=== PATIENT | female | born 1990 | race Caucasian/White ===

== ENCOUNTER 2018-12-18 06:03 | Emergency (ER) | payer BC, OTHER ==
[~2018-12-18] VITALS: Ht 180.3 cm; Wt 122.5 kg
[2018-12-18] MEDS ORDERED: METF-397 (06:21)
[2018-12-18] MEDS ORDERED: NS IV 1000 ML 1,000 ML IV SCH ×2 (06:30→07:30)
[2018-12-18] MEDS ORDERED: ONDANSETRON 4 MG/2 ML (SDV) Z0FRAN IVP ONE (06:30)
[2018-12-18] MEDS ORDERED: fentaNYL INJECTION 100 MCG/2 ML AMP IVP ONE (06:30)
--- NOTE | 2018-12-18 06:37 | ED GI ---
General Chief Complaint: Abdominal/GI Problems Stated Complaint: STOMACH CRAMPS, HEADACHE DIARRHEA Nursing Triage Note: abdominal cramping, diarrhea, headache. Sepsis Screen: No Definite Risk Source of Information: Patient, Family Exam Limitations: No Limitations History of Present Illness Date Seen by Provider: Dec 18, 2018 Time Seen by Provider: 06:30 Initial Comments 28-year-old white female presents with cramping abdominal pain and diarrhea and nausea and hour after eating chicken yesterday at a local restaurant. The patient denies blood in the diarrhea. The cramping abdominal pain as diffuse poorly localized severe and constant. Patient denies similar episodes in the past. Patient is taking metformin to regulate her period and is not using control and then attempted to conceive. Patient is unclear when her last menstrual period occurred. In addition of the GI symptoms patient has a headache. She denies stiff neck or photophobia. She has no cough, shortness of breath, chest pain, palpitations , flank pain or dysuria. Allergies and Home Medications Allergies Coded Allergies: No Known Drug Allergies (Unverified , 12/18/18) Patient Home Medication List Home Medication List Reviewed: Yes Review of Systems Review of Systems Constitutional: No fever EENTM: No Double Vision Respiratory: Denies Cough Cardiovascular: Denies Chest Pain Gastrointestinal: Abdominal Pain, Diarrhea, Nausea; Denies Rectal Bleeding Genitourinary: Denies Burning, Denies Frequency Musculoskeletal: No back pain Skin: No rash Psychiatric/Neurological: No Symptoms Reported Endocrine: No Symptoms Reported Hematologic/Lymphatic: No Symptoms Reported Past Ngjjoap-Zewymp-Pffmpw Hx Past Med/Social Hx: Reviewed Nursing Past Med/Soc Hx Patient Social History Alcohol Use: Rarely Uses Recreational Drug Use: No Smoking Status: Never a Smoker 2nd Hand Smoke Exposure: No Recent Foreign Travel: No Contact w/Someone Who Travel: No Recent Infectious Disease Expo: No Recent Hopitalizations: No Seasonal Allergies Seasonal Allergies: No Past Medical History Surgeries: Yes Tonsillectomy Respiratory: No Cardiac: No Neurological: No : No Genitourinary: No Gastrointestinal: No Musculoskeletal: No Endocrine: No HEENT: No Cancer: No Psychosocial: No Integumentary: No Blood Disorders: No Physical Exam Vital Signs Vital Signs - First Documented 12/18/18 06:13 Temp 98.9 Pulse 102 Resp 20 B/P (MAP) 132/94 (107) Pulse Ox 97 O2 Delivery Room Air Capillary Refill : Less Than 3 Seconds Height/Weight/BMI Height: 5'11.00" Weight: 270lbs. oz. 122.605881zx; BMI Method:Stated General Appearance: WD/WN, mild distress HEENT: normal ENT inspection Neck: normal inspection Respiratory: lungs clear Cardiovascular: regular rate, rhythm Gastrointestinal: normal bowel sounds, soft, abnormal bowel sounds (hyperactive ), tenderness (there is mild diffuse tenderness) Extremities: normal range of motion, normal inspection, no pedal edema Back: normal inspection Neurologic/Psychiatric: no motor/sensory deficits, alert, normal mood/affect Skin: normal color, warm/dry Progress/Results/Core Measures Results/Orders Lab Results Laboratory Tests Test 12/18/18 06:40 12/18/18 06:45 Range/Units Urine Color YELLOW Urine Clarity CLEAR Urine pH 7 5-9 Urine Specific [place] 1.010 L 1.016-1.022 Urine Protein NEGATIVE NEGATIVE Urine Glucose (UA) NEGATIVE NEGATIVE Urine Ketones NEGATIVE NEGATIVE Urine Nitrite NEGATIVE NEGATIVE Urine Bilirubin NEGATIVE NEGATIVE Urine Urobilinogen NORMAL NORMAL MG/DL Urine Leukocyte Esterase NEGATIVE NEGATIVE Urine RBC (Auto) NEGATIVE NEGATIVE Urine RBC RARE /HPF Urine WBC RARE /HPF Urine Squamous Epithelial Cells 2-5 /HPF Urine Crystals NONE /LPF Urine Bacteria FEW H /HPF Urine Casts NONE /LPF Urine Mucus NEGATIVE /LPF Urine Culture Indicated NO White Blood Count 8.4 4.3-11.0 10^3/uL Red Blood Count 4.95 4.35-5.85 10^6/uL Hemoglobin 14.3 11.5-16.0 G/DL Hematocrit 43 35-52 % Mean Corpuscular Volume 86 80-99 FL Mean Corpuscular Hemoglobin 29 25-34 PG Mean Corpuscular Hemoglobin Concent 34 32-36 G/DL Red Cell Distribution Width 12.8 10.0-14.5 % Platelet Count 234 130-400 10^3/uL Mean Platelet Volume 11.3 H 7.4-10.4 FL Neutrophils (%) (Auto) 44 42-75 % Lymphocytes (%) (Auto) 37 12-44 % Monocytes (%) (Auto) 9 0-12 % Eosinophils (%) (Auto) 10 0-10 % Basophils (%) (Auto) 1 0-10 % Neutrophils # (Auto) 3.7 1.8-7.8 X 10^3 Lymphocytes # (Auto) 3.1 1.0-4.0 X 10^3 Monocytes # (Auto) 0.7 0.0-1.0 X 10^3 Eosinophils # (Auto) 0.8 H 0.0-0.3 10^3/uL Basophils # (Auto) 0.0 0.0-0.1 10^3/uL Sodium Level 137 135-145 MMOL/L Potassium Level 4.0 3.6-5.0 MMOL/L Chloride Level 105 98-107 MMOL/L Carbon Dioxide Level 22 21-32 MMOL/L Anion Gap 10 5-14 MMOL/L Blood Urea Nitrogen 13 7-18 MG/DL Creatinine 0.82 0.60-1.30 MG/DL Estimat Glomerular Filtration Rate > 60 BUN/Creatinine Ratio 16 Glucose Level 92 70-105 MG/DL Calcium Level 9.6 8.5-10.1 MG/DL Corrected Calcium 9.4 8.5-10.1 MG/DL Total Bilirubin 0.4 0.1-1.0 MG/DL Aspartate Amino Transf (AST/SGOT) 16 5-34 U/L Alanine Aminotransferase (ALT/SGPT) 27 0-55 U/L Alkaline Phosphatase 103 40-136 U/L Total Protein 7.2 6.4-8.2 GM/DL Albumin 4.2 3.2-4.5 GM/DL Lipase 22 8-78 U/L My Orders Orders - JOE RUSHING MD Ondansetron Injection (Zofran Injectio (12/18/18 06:30) Fentanyl Injection (Sublimaze Injection (12/18/18 06:30) Ns Iv 1000 Ml (Sodium Chloride 0.9%) (12/18/18 06:30) Cbc With Automated Diff (12/18/18 06:27) Comprehensive Metabolic Panel (12/18/18 06:27) Lipase (12/18/18 06:27) Urine Bedside (12/18/18 06:27) Ua Culture If Indicated (12/18/18 06:27) Ns Iv 1000 Ml (Sodium Chloride 0.9%) (12/18/18 07:30) Medications Given in ED Current Medications Medications Dose Ordered Sig/Mitzi Route Start Time Stop Time Status Last Admin Dose Admin Fentanyl Citrate 50 mcg ONCE ONCE IVP 12/18/18 06:30 12/18/18 06:31 DC 12/18/18 06:46 50 MCG Ondansetron HCl 4 mg ONCE ONCE IVP 12/18/18 06:30 12/18/18 06:31 DC 12/18/18 06:46 4 MG Vital Signs/I&O 12/18/18 06:13 Temp 98.9 Pulse 102 Resp 20 B/P (MAP) 132/94 (107) Pulse Ox 97 O2 Delivery Room Air Blood Pressure Mean: 107 Progress Progress Note : Time: 06:38 Progress Note Initial evaluation and treatment consisted of laboratory evaluation and IV fluids with that now on Zofran. 7:45 a.m. The patient was significantly improved with the fluids and Zofran and fentanyl. I gave her an additional liter of saline. Patient was ready for discharge. I discussed the normal lab findings with patient and . I recommended clear liquids today and bedrest. I sent patient home with Zofran and hydrocodone. I invited her to return to emergency department should any problems questions. Departure Impression Primary Impression: Diarrhea Qualified Codes: R19.7 - Diarrhea, unspecified Disposition: 01 HOME, SELF-CARE Condition: Improved Departure-Patient Inst. Decision time for Depature: 07:49 Referrals: [facility] Patient Instructions: Diarrhea and Traveler's Diarrhea, Adult (DC) Add. Discharge Instructions: Clear liquids today. Zofran for nausea. Vicodin for pain. Return if any problems or questions. Follow-up with your caregiver tomorrow. All discharge instructions reviewed with patient and/or family. Voiced understanding. Scripts Ondansetron (Ondansetron Odt) 4 Mg Tab.rapdis 4 MG PO Q4H PRN for NAUSEA/VOMITING-1ST LINE, #14 TAB Prov: JOE RUSHING MD 12/18/18 Hydrocodone/Acetaminophen (Vicodin 5-300 mg Tablet) 1 Each Tablet 1-2 EACH PO Q6H PRN for PAIN-MODERATE MDD 10, #20 TAB Prov: JOE RUSHING MD 12/18/18 JOE RUSHING MD Dec 18, 2018 06:37
[2018-12-18 06:54] LABS: BASOPHILS % (AUTO) 1 % (0-10); EOSINOPHILS # (AUTO) 0.8 10^3/uL (0.0-0.3); EOSINOPHILS % (AUTO) 10 % (0-10); HEMATOCRIT 43 % (35-52); HEMOGLOBIN 14.3 G/DL (11.5-16.0); LYMPHOCYTES # (AUTO) 3.1 X 10^3 (1.0-4.0); LYMPHOCYTES % (AUTO) 37 % (12-44); MEAN CORPUSCULAR HEMOGLOBIN 29 PG (25-34); MEAN CORPUSCULAR HGB CONC 34 G/DL (32-36); MEAN CORPUSCULAR VOLUME 86 FL (80-99); MEAN PLATELET VOLUME 11.3 FL (7.4-10.4); MONOCYTES # (AUTO) 0.7 X 10^3 (0.0-1.0); MONOCYTES % (AUTO) 9 % (0-12); NEUTROPHILS # (AUTO) 3.7 X 10^3 (1.8-7.8); NEUTROPHILS % (AUTO) 44 % (42-75); PLATELET COUNT 234 10^3/uL (130-400); RED CELL DISTRIBUTION WIDTH 12.8 % (10.0-14.5); WHITE BLOOD COUNT 8.4 10^3/uL (4.3-11.0)
[2018-12-18 06:56] LABS: BILIRUBIN,URINE NEGATIVE (NEGATIVE); CLARITY,URINE CLEAR; COLOR,URINE YELLOW; GLUCOSE, URINE (UA) NEGATIVE (NEGATIVE); KETONES,URINE NEGATIVE (NEGATIVE); LEUKOCYTE ESTERASE ,URINE NEGATIVE (NEGATIVE); NITRITE,URINE NEGATIVE (NEGATIVE); PH,URINE 7 (5-9); PROTEIN,URINE NEGATIVE (NEGATIVE); UROBILINOGEN,URINE NORMAL (NORMAL)
[2018-12-18 07:04] LABS: BACTERIA,URINE FEW /HPF; RBC,URINE RARE /HPF; WBC,URINE RARE /HPF
[2018-12-18 07:16] LABS: ALANINE AMINOTRANSFERASE 27 U/L (0-55); ALBUMIN 4.2 GM/DL (3.2-4.5); ALKALINE PHOSPHATASE 103 U/L (40-136); BILIRUBIN,TOTAL 0.4 MG/DL (0.1-1.0); BUN/CREATININE RATIO 16; CALCIUM 9.6 MG/DL (8.5-10.1); CARBON DIOXIDE 22 MMOL/L (21-32); CHLORIDE 105 MMOL/L (98-107); CREATININE SERUM 0.82 MG/DL (0.60-1.30); GFR ESTIMATED > 60; GLUCOSE 92 MG/DL (70-105); LIPASE 22 U/L (8-78); SODIUM 137 MMOL/L (135-145); TOTAL PROTEIN 7.2 GM/DL (6.4-8.2)
[2018-12-18] MEDS ORDERED: ONDA4TAB11 PO (07:52)
[2018-12-18] MEDS ORDERED: HYDR-3455 PO (07:52)
[2018-12-18 08:26] VITALS: BP 126/90
== END 2018-12-18 08:25 | disposition home or self-care (01) ==
LOC: ER 06:08
DX: R19.7 Diarrhea, unspecified (principal); Z90.89 Acquired absence of other organs
CPT/HCPCS: 36415; 80053; 81000; 83690; 84703; 85025

== ENCOUNTER → 2019-01-25 | Outpatient (CLI) | payer BC ==
[~2019-01-25] MED LIST: HYDR-3455 PO; METF-397; ONDA4TAB11 PO
--- NOTE | 2019-01-25 13:35 | Diagnostic Imaging Report ---
PROCEDURE: US OB SINGLE FETUS <14 WKS. TECHNIQUE: Multiple real-time grayscale images were obtained over the gravid uterus in various projections. INDICATION: Spotting. There is an intrauterine gestational sac containing a pole. Lewellen-rump length measures approximately 22 mm consistent with 9 weeks 0 days gestation. heart rate was recorded at 174 beats per minute. No perigestational sac hemorrhage is detected. Gestational sac shape is within normal limits. Adnexal evaluation was performed. Right ovary was not seen due to bowel gas. Left ovary measures 4.3 x 3.1 x 4.1 cm and contains a 1.7 cm cyst. No free fluid is seen. IMPRESSION: Single live IUP 9 weeks 0 days gestational age. Estimated date of confinement sonographically is 08/30/2019. No complicating features are detected. Dictated by: Dictated on workstation # [id number]
== END ==
LOC: RAD 12:26
PROVIDERS: ATTEND Obstetrics & Gynecology
DX: O20.9 Hemorrhage in early pregnancy, unspecified (principal); Z3A.09 9 weeks gestation of pregnancy
CPT/HCPCS: 76801

== ENCOUNTER → 2019-04-17 | Outpatient (CLI) | payer BC ==
--- NOTE | 2019-04-17 16:51 | Diagnostic Imaging Report ---
INDICATION: patient, survey. TECHNIQUE: Multiple real-time grayscale images were obtained over the gravid uterus. COMPARISON: 01/25/2019 FINDINGS: A single live intrauterine fetus is seen measuring 21 weeks 1 day in size with normal interval growth compared to the previous study. The fetus is in breech presentation. Amniotic fluid is qualitatively normal. Placenta is anterior and grade 1 with no evidence of previa. heart rate is 146 beats per minute. Cervical length is 5.3 cm. The gestational sac had a normal-appearing shape. Normal-appearing kidneys, bladder, stomach, and intracranial ventricles are noted. Normal four chamber heart is seen. Normal three-vessel cord and cord insertion are noted. Normal views of the spine are seen. Maternal adnexa could not be visualized but there is no free fluid. Biometrical measurements are as follows: Biparietal 5.05 cm, age 21 weeks 3 days. Head circumference 18.17 cm, age 20 weeks 5 days. Abdominal circumference 15.77 cm, age 21 weeks 0 days. Femur length 3.49 cm, age 21 weeks 1 days. Sonographic estimate age: 21 weeks 1 days. Sonographic estimated date of delivery: 08/27/2019. Estimated Weight: 387 gm (+/- 57 gm). LMP percentile: 57%. heart rate: 146 beats per minute. number: 1 of 1. IMPRESSION: Single live intrauterine fetus measuring 21 weeks 1 day in size. There are no detectable abnormalities. There has been normal interval growth compared to the previous study of 01/25/2019. Dictated by: Dictated on workstation # [id number]
== END ==
LOC: RAD 16:03
PROVIDERS: ATTEND Obstetrics & Gynecology
DX: Z36.89 Encounter for other specified antenatal screening (principal); Z3A.21 21 weeks gestation of pregnancy
CPT/HCPCS: 76805

== ENCOUNTER 2019-09-03 20:00 | Inpatient (IN) | payer BC ==
[~2019-09-03] VITALS: Ht 180.3 cm; Wt 127.1 kg
--- NOTE | 2019-09-03 20:00 | NUR ---
RINKU FLOREZ presented to unit via ambulation from home, accompanied by s.o. and mother for induction of labor. RINKU FLOREZ weighed, gowned, voided, and to bed. EFHM and TOCO applied, VS taken. RINKU FLOREZ oriented to bed controls, call light, TV, heat, and A/C controls.
[2019-09-03 20:30] VITALS: BP 122/87
[2019-09-03] MEDS ORDERED: LACTATED RINGERS 1,000 ML IV SCH (20:34)
[2019-09-03] MEDS ORDERED: TERBUTALINE INJ 1 MG/ML (BRETHINE) AMP SC PRN (20:45)
[2019-09-03] MEDS ORDERED: MINERAL OIL CONCENTRATE 99.9% 15 ML UDC TOP PRN (20:45)
[2019-09-03] MEDS ORDERED: MISOPROSTOL 100 MCG (CYTOTEC) TAB PO ONE (20:45)
[2019-09-03 20:46] LABS: BASOPHILS % (AUTO) 0 % (0-10); EOSINOPHILS # (AUTO) 0.1 10^3/uL (0.0-0.3); EOSINOPHILS % (AUTO) 1 % (0-10); HEMATOCRIT 34 % (35-52); HEMOGLOBIN 11.4 G/DL (11.5-16.0); LYMPHOCYTES # (AUTO) 3.1 X 10^3 (1.0-4.0); LYMPHOCYTES % (AUTO) 27 % (12-44); MEAN CORPUSCULAR HEMOGLOBIN 27 PG (25-34); MEAN CORPUSCULAR HGB CONC 34 G/DL (32-36); MEAN CORPUSCULAR VOLUME 81 FL (80-99); MEAN PLATELET VOLUME 12.3 FL (7.4-10.4); MONOCYTES % (AUTO) 9 % (0-12); NEUTROPHILS # (AUTO) 7.3 X 10^3 (1.8-7.8); NEUTROPHILS % (AUTO) 64 % (42-75); PLATELET COUNT 221 10^3/uL (130-400); WHITE BLOOD COUNT 11.5 10^3/uL (4.3-11.0)
[2019-09-03 20:53] LABS: BILIRUBIN,URINE NEGATIVE (NEGATIVE); CLARITY,URINE CLEAR; COLOR,URINE YELLOW; GLUCOSE, URINE (UA) NEGATIVE (NEGATIVE); KETONES,URINE NEGATIVE (NEGATIVE); LEUKOCYTE ESTERASE ,URINE TRACE (NEGATIVE); NITRITE,URINE NEGATIVE (NEGATIVE); PH,URINE 7.5 (5-9); PROTEIN,URINE NEGATIVE (NEGATIVE)
[2019-09-03 21:00] LABS: BACTERIA,URINE MODERATE /HPF; WBC,URINE 0-2 /HPF
[2019-09-03 21:01] LABS: AMORPHOUS SEDIMENT,UR FEW AMOR PHOSPHATE /LPF
[2019-09-03] MEDS: D5 LR IV SOLUTION 1,000 ML IV SCH (21:04)
[2019-09-03 22:30] VITALS: BP 141/66
[2019-09-03] MEDS: CATHETER FLUSH 10 ML SYR IV SCH (22:54)
[2019-09-04] VITALS (50 sets, daily range): BP systolic 109–147; BP diastolic 57–97
[2019-09-04] MEDS: MISOPROSTOL 100 MCG (CYTOTEC) TAB PO SCH ×2 (01:14→06:09)
[2019-09-04] MEDS ORDERED: morphine INJ 10 MG/ML 1ML (SYR OR VIAL) ONE (01:43)
[2019-09-04] MEDS ORDERED: PROMETHAZINE INJ 25 MG/ML (PHENERGAN) AMP ONE (01:43)
[2019-09-04] MEDS ORDERED: PROMETHAZINE INJ 25 MG/ML (PHENERGAN) AMP IVP PRN (02:00)
[2019-09-04] MEDS ORDERED: morphine INJ 10 MG/ML 1ML (SYR OR VIAL) IVP PRN (02:00)
[2019-09-04] MEDS ORDERED: PREN-142 PO (02:22)
[2019-09-04] MEDS ORDERED: FAMO1TAB21 PO (02:23)
[2019-09-04] MEDS ORDERED: SUFENTA 0.6MCG/ML BUPIVA 0.125 100 ML ONE (02:52)
[2019-09-04] MEDS ORDERED: BUPIVACAINE 0.25% 30 ML (SENSORCAINE) VIAL ONE (03:44)
[2019-09-04] MEDS ORDERED: LIDOCAINE PF 2% 5 ML (XYLOCAINE) VIAL ONE (03:44)
[2019-09-04] MEDS ORDERED: fentaNYL INJECTION 100 MCG/2 ML AMP ONE (03:44)
[2019-09-04] MEDS ORDERED: LACTATED RINGERS 1,000 ML IV SCH (04:17)
[2019-09-04] MEDS ORDERED: EPIDURAL (SUFENTA 0.6MCG/ML BUPIVA 0.125%) 100 ML BAG EPI PRN (04:30)
[2019-09-04] MEDS ORDERED: ONDANSETRON 4 MG/2 ML (SDV) Z0FRAN IV PRN (04:30)
[2019-09-04] MEDS ORDERED: NALOXONE 0.4 MG/ML 1 ML (NARCAN) VIAL IV PRN (04:30)
[2019-09-04] MEDS ORDERED: diphenhydrAMINE 50 MG/ML INJ (BENADRYL) IV PRN (04:30)
[2019-09-04] MEDS: D5 LR IV SOLUTION 1,000 ML IV SCH (04:32)
[2019-09-04] MEDS: CATHETER FLUSH 10 ML SYR IV SCH (06:09)
[2019-09-04] MEDS ORDERED: OXYTOCIN/NORMAL SALINE 500 ML IV ONE (10:24)
[2019-09-04] MEDS ORDERED: LIDOCAINE/EPI 2% 1:200,00 (XYLOCAINE) 10 ML VIAL ONE (10:46)
[2019-09-04] MEDS ORDERED: OXYTOCIN/NORMAL SALINE 500 ML IV SCH (11:05)
--- NOTE | 2019-09-04 11:05 | OB Labor & Delivery Record ---
Vag Delivery Note Vag Delivery Note Date of Delivery: 09/04/19 Preoperative Diagnosis: Savannah Gaviria is a 30 /Para 1 /0 ,Gestational Age 40 5/7 weeks, induction due to Post maturity Postoperative Diagnosis: Same Surgeon: [facility] Visual Basic .Net Developer: none Anesthesia: epidural Delivery Type: vaginal Findings: Viable female infant, apgars 8/9, weight 8#6 ounces Lacerations: 1st degree with left vaginal wall extension Intact placenta with 3 vessel cord. No nuchal cord, body cord or shoulder dystocia. There was an occult cord prolapse with the delivery of the head (a large loop of cord delivered as the head delivered, but was not nuchal or body cord) Cytotec 800 mcg placed for hemorrhage prophylaxis Estimated Blood Loss: 500 ml at delivery, but following delivery passed several more large clots with gushes of blood. Total during and after delivery 1125 ml Complications: None Condition: Stable Description of Procedure: The patient is a 30 /Para 1 /0 ,Gestational Age 40 5/7 weeks, induction due to Post maturity.. She was admitted and informed consent was obtained. Her labor course was remarkable for Misoprostol x 1 dose, then SROM and spontaneous labor without augmentation. She progressed to complete dilatation and began to push. She was then set up for delivery. The infant's head was delivered atraumatically in the OA position. The shoulders and remainder of the 's body were then delivered without difficulty. The cord prolapsed at the time of the head delivery, but the body delivered very quickly after. Upon delivery, the head was held below the level of the perineum and the mouth and nares were bulb suctioned. The cord was doubly clamped and cut and the was handed off to the pediatric staff. An intact placenta with 3-vessel cord delivered via [place] and there was found to be minimal bleeding.~ Vigorous fundal massage was performed and the fundus was found to be firm. IV oxytocin was given. Examination of the vagina and perineum revealed a 1st degree laceration with left vaginal extension repaired in the usual fashion with 3-0 vicryl suture and topical lidocaine. Following the repair, sponge, instrument and needle counts were correct. Mom and baby were both in stable condition in the labor suite. Following delivery, I was called back to the room by the nurse due to large clots. She received two bags of pitocin and 800 mcg of misoprostol. I reexamined her and emptied her bladder. I did a manual exam and found no lacerations or large clots. She did contract with massage. She was given methergine. Hgb after delivery was 11.3, but suspect this has not yet equilibrated. will continue methergine for 24 hours and recheck hgb. Vitals - Labs Vital Signs - I&O Vital Signs Date Time Temp Pulse Resp B/P (MAP) Pulse Ox O2 Delivery O2 Flow Rate FiO2 09/04/19 08:05 102 125/74 (91) 97 Room Air 09/04/19 07:50 96 116/68 (84) 97 Room Air 09/04/19 07:35 91 119/70 (86) 97 Room Air 09/04/19 07:20 94 110/70 (83) 98 Room Air 09/04/19 07:05 98 120/76 (91) 100 Room Air 09/04/19 07:00 91 119/74 (89) 97 Room Air 09/04/19 06:45 93 126/73 (90) 98 Room Air 09/04/19 06:30 86 124/71 (88) 98 Room Air 09/04/19 06:15 89 121/76 (91) 98 Room Air 09/04/19 06:00 93 128/78 (95) 98 Room Air 09/04/19 05:45 88 124/72 (89) 100 Room Air 09/04/19 05:30 93 124/71 (88) 98 Room Air 09/04/19 05:15 88 98 Room Air 09/04/19 05:10 93 119/68 (85) 98 Room Air 09/04/19 05:07 83 121/69 (86) 98 Room Air 09/04/19 05:00 84 98 Room Air 09/04/19 04:55 91 117/69 (85) 98 Room Air 09/04/19 04:50 90 119/64 (82) 98 Room Air 09/04/19 04:47 91 120/69 (86) 99 Room Air 09/04/19 04:45 95 99 Room Air 09/04/19 04:41 93 122/71 (88) 99 Room Air 09/04/19 04:35 96 121/73 (89) 100 Room Air 09/04/19 04:30 36.3 103 98 Room Air 09/04/19 04:27 101 128/67 (87) 98 Room Air 09/04/19 04:21 109 126/64 (84) 99 Room Air 09/04/19 04:15 102 110/68 (82) 99 Room Air 09/04/19 04:13 106 109/68 (82) 99 Room Air 09/04/19 04:10 108 117/77 (90) 99 Room Air 09/04/19 04:06 101 128/80 (96) 99 Room Air 09/04/19 04:02 107 143/87 (105) 09/04/19 04:00 107 99 Room Air 09/04/19 03:58 106 147/89 (108) 100 Room Air 09/04/19 03:50 100 137/78 (97) 100 Room Air 09/04/19 03:36 103 128/83 (98) 99 Room Air 09/04/19 03:30 99 130/74 (92) 99 Room Air 09/04/19 03:00 Room Air 09/04/19 02:30 Room Air 09/04/19 02:00 Room Air 09/04/19 01:30 36.4 93 129/86 (100) 99 Room Air 09/04/19 01:00 95 99 Room Air 09/04/19 00:30 92 99 Room Air 09/04/19 00:00 86 98 Room Air 09/03/19 23:30 97 98 Room Air 09/03/19 23:00 93 100 Room Air 09/03/19 22:30 79 141/66 (91) 100 Room Air 09/03/19 22:00 98 100 Room Air 09/03/19 21:32 36.7 09/03/19 21:30 93 97 Room Air 09/03/19 21:00 92 98 Room Air 09/03/19 20:30 108 18 122/87 (99) Room Air 09/03/19 20:30 36.7 108 18 100 Room Air I & O 09/04/19 07:00 Intake Total 3000 ml Balance 3000 ml Labs Laboratory Tests 09/03/19 20:00: Urine Color YELLOW, Urine Clarity CLEAR, Urine pH 7.5, Urine Specific [place] 1.010L, Urine Protein NEGATIVE, Urine Glucose (UA) NEGATIVE, Urine Ketones NEGATIVE, Urine Nitrite NEGATIVE, Urine Bilirubin NEGATIVE, Urine Urobilinogen 0.2, Urine Leukocyte Esterase TRACE, Urine RBC (Auto) NEGATIVE, Urine RBC NONE, Urine WBC 0-2, Urine Squamous Epithelial Cells 2-5, Urine Crystals PRESENTH, Urine Amorphous Sediment FEW CHARITY PHOSPHATEH, Urine Bacteria MODERATEH, Urine Casts NONE, Urine Mucus NEGATIVE, Urine Culture Indicated CULTURE PENDING 09/03/19 20:20: White Blood Count 11.5H, Red Blood Count 4.18L, Hemoglobin 11.4L, Hematocrit 34L , Mean Corpuscular Volume 81, Mean Corpuscular Hemoglobin 27, Mean Corpuscular Hemoglobin Concent 34, Red Cell Distribution Width 14.0, Platelet Count 221, Mean Platelet Volume 12.3H, Neutrophils (%) (Auto) 64, Lymphocytes (%) (Auto) 27, Monocytes (%) (Auto) 9, Eosinophils (%) (Auto) 1, Basophils (%) (Auto) 0, Neutrophils # (Auto) 7.3, Lymphocytes # (Auto) 3.1, Monocytes # (Auto) 1.0, Eosinophils # (Auto) 0.1, Basophils # (Auto) 0.0 [facility] DO Sep 04, 2019 11:05
[2019-09-04] MEDS ORDERED: MISOPROSTOL 200 MCG (CYTOTEC) TABLET ONE (11:08)
[2019-09-04] MEDS ORDERED: BENZOCAINE/MENTHOL (DERMOPLAST) 56 ML CAN TP PRN (11:15)
[2019-09-04] MEDS ORDERED: TETANUS,DIPTH,PERTUSS P/F (BOOSTRIX) 0.5 ML VIAL IM ONE (11:15)
[2019-09-04] MEDS ORDERED: MEASLES,MUMPS,RUBELLA 1 EA INJ SQ ONE (11:15)
[2019-09-04] MEDS ORDERED: WITCH HAZEL(TUCKS) 40 EA JAR TOP PRN (11:15)
[2019-09-04] MEDS: IBUPROFEN 600 MG (MOTRIN) TAB PO SCH ×2 (12:11→19:26)
[2019-09-04] MEDS ORDERED: METHYLERGONOVINE 0.2 MG/ML (METHERGINE) AMP IM ONE (12:15)
--- NOTE | 2019-09-04 12:50 | NUR ---
ASSISTED UP TO BATHROOM WITH STANDBY ASSISTANCE. DEMONSTRATED APPROPRIATE PERICARE. UNDERWEAR AND VPAD APPLIED. DEMONSTARTED APPROPRIATE APPLICATION OF DERMOPLAST SPRAY. 125CC BLOOD WEIGHED ON RECENT BRADEN. DENIES DIZZINESS OR LIGHTHEADEDNESS. STEADY GAIT WITH AMBULATION. DENIES FURTHER NEED AT THIS TIME.
--- NOTE | 2019-09-04 13:55 | NUR ---
ASSISTED TO STANDING POSITION TO TRANSFER TO PP PATIENT REPORTS FEELING BLEEDING. BLOOD NOTED RUNNING DOWN BOTH LEGS. ASSISTED INTO W/C MOVED TO ROOM TO PP ROOM 309. ASSISTED INTO BED, NO ACTIVE BLEEDING NOTED SINCE INITIAL GUSH. CONTINUING TO MONITOR. 40CC BLOOD LOSS ON VPAD BRINGING TOTAL TO 1410CC. reports mild dizziness. denies further symptoms. continuing to monitor closely. 1410 noguera given update. new orders received.
[2019-09-04] MEDS ORDERED: CATHETER FLUSH 10 ML SYR IV SCH (14:00)
[2019-09-04 14:56] LABS: BASOPHILS % (AUTO) 0 % (0-10); EOSINOPHILS % (AUTO) 0 % (0-10); HEMATOCRIT 34 % (35-52); HEMOGLOBIN 11.2 G/DL (11.5-16.0); LYMPHOCYTES # (AUTO) 1.9 X 10^3 (1.0-4.0); LYMPHOCYTES % (AUTO) 9 % (12-44); MEAN CORPUSCULAR HEMOGLOBIN 27 PG (25-34); MEAN CORPUSCULAR HGB CONC 33 G/DL (32-36); MEAN CORPUSCULAR VOLUME 81 FL (80-99); MEAN PLATELET VOLUME 11.9 FL (7.4-10.4); MONOCYTES % (AUTO) 5 % (0-12); NEUTROPHILS # (AUTO) 16.9 X 10^3 (1.8-7.8); NEUTROPHILS % (AUTO) 86 % (42-75); PLATELET COUNT 217 10^3/uL (130-400); WHITE BLOOD COUNT 19.8 10^3/uL (4.3-11.0)
[2019-09-04 15:27] LABS: BAND NEUTROPHILS 2 %; BASOPHILS % (MANUAL) 0 %; EOSINOPHILS % (MANUAL) 0 %; LYMPHOCYTES % (MANUAL) 9 %; MONOCYTES % (MANUAL) 4 %; NEUTROPHILS % (MANUAL) 85 %
[2019-09-04 15:28] LABS: RBC MORPH NORMAL
[2019-09-04] MEDS: ACETAMINOPHEN 500 MG TAB (TYLENOL) PO SCH (17:00)
[2019-09-04] MEDS: DOCUSATE SODIUM 100 MG (COLACE) CAP PO SCH (19:26)
[2019-09-04] MEDS: METHYLERGONOVINE 0.2 MG (MEHTERGINE) TAB PO SCH (19:26)
[2019-09-05] MEDS: IBUPROFEN 600 MG (MOTRIN) TAB PO SCH ×3 (01:50→16:30)
[2019-09-05 04:00] VITALS: BP 138/76
[2019-09-05] MEDS: METHYLERGONOVINE 0.2 MG (MEHTERGINE) TAB PO SCH ×3 (04:21→16:29)
[2019-09-05 06:02] LABS: BASOPHILS % (AUTO) 0 % (0-10); EOSINOPHILS # (AUTO) 0.1 10^3/uL (0.0-0.3); EOSINOPHILS % (AUTO) 1 % (0-10); HEMATOCRIT 31 % (35-52); HEMOGLOBIN 10.1 G/DL (11.5-16.0); LYMPHOCYTES % (AUTO) 23 % (12-44); MEAN CORPUSCULAR HEMOGLOBIN 26 PG (25-34); MEAN CORPUSCULAR HGB CONC 32 G/DL (32-36); MEAN CORPUSCULAR VOLUME 82 FL (80-99); MEAN PLATELET VOLUME 12.3 FL (7.4-10.4); MONOCYTES # (AUTO) 1.1 X 10^3 (0.0-1.0); MONOCYTES % (AUTO) 9 % (0-12); NEUTROPHILS # (AUTO) 8.8 X 10^3 (1.8-7.8); NEUTROPHILS % (AUTO) 67 % (42-75); PLATELET COUNT 190 10^3/uL (130-400); RED CELL DISTRIBUTION WIDTH 14.3 % (10.0-14.5)
[2019-09-05] MEDS ORDERED: PRENATAL VITAMIN 1 EA TAB PO SCH (07:00)
--- NOTE | 2019-09-05 07:22 | Postpartum Progress Note ---
Note Note Day # 1. Delayed pp hemorrhage after delivery yesterday. Bleeding is better today after pitocin, misoprostol, methergine. Subjective: Patient is without complaints. Ambulating, voiding. Tolerating a regular diet without nausea or vomiting. Normal lochia. Pain is well controlled with oral pain medications. breast feeding. Objective: 09/04/19 09/04/19 09/05/19 19:25 23:45 04:00 Temp 36.7 36.7 36.6 Pulse 94 113 103 Resp 18 18 18 B/P (MAP) 117/76 (90) 139/97 (111) 138/76 (96) Pulse Ox 95 98 98 Laboratory Tests Test 09/04/19 14:48 09/05/19 05:41 Range/Units White Blood Count 19.8 H 13.0 H 4.3-11.0 10^3/uL Red Blood Count 4.16 L 3.82 L 4.35-5.85 10^6/uL Hemoglobin 11.2 L 10.1 L 11.5-16.0 G/DL Hematocrit 34 L 31 L 35-52 % Mean Corpuscular Volume 81 82 80-99 FL Mean Corpuscular Hemoglobin 27 26 25-34 PG Mean Corpuscular Hemoglobin Concent 33 32 32-36 G/DL Red Cell Distribution Width 14.0 14.3 10.0-14.5 % Platelet Count 217 190 130-400 10^3/uL Mean Platelet Volume 11.9 H 12.3 H 7.4-10.4 FL Neutrophils (%) (Auto) 86 H 67 42-75 % Lymphocytes (%) (Auto) 9 L 23 12-44 % Monocytes (%) (Auto) 5 9 0-12 % Eosinophils (%) (Auto) 0 1 0-10 % Basophils (%) (Auto) 0 0 0-10 % Neutrophils # (Auto) 16.9 H 8.8 H 1.8-7.8 X 10^3 Lymphocytes # (Auto) 1.9 3.0 1.0-4.0 X 10^3 Monocytes # (Auto) 1.0 1.1 H 0.0-1.0 X 10^3 Eosinophils # (Auto) 0.0 0.1 0.0-0.3 10^3/uL Basophils # (Auto) 0.0 0.0 0.0-0.1 10^3/uL Neutrophils % (Manual) 85 % Lymphocytes % (Manual) 9 % Monocytes % (Manual) 4 % Eosinophils % (Manual) 0 % Basophils % (Manual) 0 % Band Neutrophils 2 % Blood Morphology Comment NORMAL Physical Exam: General - Alert and oriented, no apparent distress Abdomen - Soft, appropriately tender to palpation, non-distended, fundus firm at umbilicus Extremities - 2+ edema, negative Dinorah's bilaterally Assessment: 1. post- day # 1, status post spontaneous vaginal delivery. Recovering well, hemodynamically stable 2. post hemorrhage - stable Plan: Routine care. Encourage breast feeding. Encourage ambulation. Ferrous sulfate supplementation. Plan for discharge today or tomorrow Vitals - Labs Vital Signs - I&O Vital Signs Date Time Temp Pulse Resp B/P (MAP) Pulse Ox O2 Delivery O2 Flow Rate FiO2 09/05/19 04:00 36.6 103 18 138/76 (96) 98 09/04/19 23:45 36.7 113 18 139/97 (111) 98 09/04/19 19:25 36.7 94 18 117/76 (90) 95 09/04/19 16:59 37.0 105 18 124/78 (93) 96 Room Air 09/04/19 12:05 36.8 109 126/73 (90) Room Air 09/04/19 11:50 36.8 116 121/62 (81) Room Air 09/04/19 11:35 36.9 142 125/66 (85) Room Air 09/04/19 11:20 36.9 142 130/67 (88) Room Air 09/04/19 11:05 36.9 142 116/57 (76) Room Air 09/04/19 10:50 137 114/64 (81) Room Air 09/04/19 10:35 133 141/81 (101) Room Air 09/04/19 10:20 136 141/77 (98) Room Air 09/04/19 10:05 114 132/81 (98) Room Air 09/04/19 09:50 108 124/78 (93) 97 Room Air 09/04/19 09:35 37.2 96 121/72 (88) 98 Room Air 09/04/19 09:20 95 118/72 (87) 97 Room Air 09/04/19 09:05 98 115/71 (86) 97 Room Air 09/04/19 08:50 88 123/72 (89) 96 Room Air 09/04/19 08:35 96 110/72 (85) 96 Room Air 09/04/19 08:20 105 127/83 (98) 97 Room Air 09/04/19 08:05 102 125/74 (91) 97 Room Air 09/04/19 07:50 96 116/68 (84) 97 Room Air 09/04/19 07:35 91 119/70 (86) 97 Room Air Labs Laboratory Tests 09/04/19 14:48: White Blood Count 19.8H, Red Blood Count 4.16L, Hemoglobin 11.2L, Hematocrit 34L , Mean Corpuscular Volume 81, Mean Corpuscular Hemoglobin 27, Mean Corpuscular Hemoglobin Concent 33, Red Cell Distribution Width 14.0, Platelet Count 217, Mean Platelet Volume 11.9H, Neutrophils (%) (Auto) 86H, Lymphocytes (%) (Auto) 9L, Monocytes (%) (Auto) 5, Eosinophils (%) (Auto) 0, Basophils (%) (Auto) 0, Neutrophils # (Auto) 16.9H, Lymphocytes # (Auto) 1.9, Monocytes # (Auto) 1.0, Eosinophils # (Auto) 0.0, Basophils # (Auto) 0.0, Neutrophils % (Manual) 85, Lymphocytes % (Manual) 9, Monocytes % (Manual) 4, Eosinophils % (Manual) 0, Basophils % (Manual) 0, Band Neutrophils 2, Blood Morphology Comment NORMAL 09/05/19 05:41: White Blood Count 13.0H, Red Blood Count 3.82L, Hemoglobin 10.1L, Hematocrit 31L , Mean Corpuscular Volume 82, Mean Corpuscular Hemoglobin 26, Mean Corpuscular Hemoglobin Concent 32, Red Cell Distribution Width 14.3, Platelet Count 190, Mean Platelet Volume 12.3H, Neutrophils (%) (Auto) 67, Lymphocytes (%) (Auto) 23, Monocytes (%) (Auto) 9, Eosinophils (%) (Auto) 1, Basophils (%) (Auto) 0, Neutrophils # (Auto) 8.8H, Lymphocytes # (Auto) 3.0, Monocytes # (Auto) 1.1H, Eosinophils # (Auto) 0.1, Basophils # (Auto) 0.0 Microbiology 12/29/19 Urine Culture - Final, Complete NO GROWTH [facility] DO Sep 05, 2019 07:22
[2019-09-05] MEDS ORDERED: OXC5T PO (07:23)
[2019-09-05] MEDS ORDERED: ACET-93 PO (07:23)
[2019-09-05] MEDS ORDERED: IBUP-844 PO (07:23)
[2019-09-05] MEDS ORDERED: FERR325T18 PO (07:23)
--- NOTE | 2019-09-05 07:25 | Discharge Inst-Women's Service ---
Discharge Inst-Women's Serv Depart Medication/Instructions New, Converted or Re-Newed RX: Other (on chart and transmitted to pharmacy) Instructions follow up in 2 weeks with Gemma for wellbeing check and laceration exam Final Diagnosis post dates (40 5/7 weeks) vaginal delivery post hemorrhage Problems Reviewed?: Yes Consults/Follow Up Additional Follow Up: Yes (2 weeks with Gemma for laceration check and well being check; 6 weeks for pp exam) Activity Activity: Activity as Tolerated Driving Instructions: You May Drive NO SMOKING: NO SMOKING Nothing Inside Vagina: No Douching, No [place], No Tampons Diet Discharge Diet: No Restrictions Symptoms to Report to : Swelling Increased, Bleeding Excessive, Pain Increased, Fever Over 101 Degrees F, Vaginal Bleeding Increase, Cramps in Feet or Legs, Vaginal Discharge Foul For Any Problems or Questions: Contact Your Physician [facility] DO Sep 05, 2019 07:25
[2019-09-05 08:40] VITALS: BP 120/79
[2019-09-05] MEDS: DOCUSATE SODIUM 100 MG (COLACE) CAP PO SCH (08:49)
[2019-09-05] MEDS ORDERED: FERROUS SULF 325 MG (IRON) TAB PO SCH (09:00)
--- NOTE | 2019-09-05 10:36 | Anesthesia-Regional Post-Op ---
Regional Patient Condition Mental Status: Alert, Oriented x3 Circulation: Same as Pre-Op Headache: Absent Sensation: Full Recovery Motor Block: Absent Post Op Complications Complications None Follow Up Care/Instructions Patient Instructions None needed. Anesthesia/Patient Condition Patient is doing well, no complaints, stable vital signs, no apparent adverse anesthesia problems. No complications reported per nursing. MECHE VANCE CRNA Sep 05, 2019 10:36
[2019-09-05] MEDS: ACETAMINOPHEN 500 MG TAB (TYLENOL) PO SCH (12:04)
--- NOTE | 2019-09-05 16:15 | NUR ---
home instructions given to pt. She verbalizes understanding. Mom to boarder due to infant's continued stay.
== END 2019-09-05 17:45 | disposition home or self-care (01) | DRG 806 ==
LOC: LDRP 20:00
PROVIDERS: ADMIT Obstetrics & Gynecology; ATTEND Obstetrics & Gynecology
PROC: 10E0XZZ Delivery of Products of Conception, External Approach (ICD-10-PCS; principal; 2019-09-04)
DX: O48.0 Post-term pregnancy (principal); Z37.0 Single live birth; O72.1 Other immediate postpartum hemorrhage; Z3A.40 40 weeks gestation of pregnancy; O70.0 First degree perineal laceration during delivery
CPT/HCPCS: 36415; 81000; 85007; 85025; 85027; 86850; 86900; 86901; 87088

== ENCOUNTER 2020-05-26 18:27 | Emergency (ER) | payer SELFPAY ==
[~2020-05-26] VITALS: Ht 180 cm; Wt 123.0 kg
[~2020-05-26 18:27] MED LIST changes: +ACET-93 PO; +FAMO1TAB21 PO; +FERR325T18 PO; +IBUP-844 PO; +OXC5T PO; +PREN-142 PO
[2020-05-26] MEDS ORDERED: RT-ALBUTEROL INHALER HFA (VENTOLIN HFA) 18 GM IH ONE (18:50)
[2020-05-26] MEDS ORDERED: LACTATED RINGERS 1,000 ML IV ONE (18:50)
[2020-05-26 18:53] LABS: BASOPHILS % (AUTO) 0 % (0-10); EOSINOPHILS # (AUTO) 0.1 10^3/uL (0.0-0.3); EOSINOPHILS % (AUTO) 1 % (0-10); HEMATOCRIT 43 % (35-52); HEMOGLOBIN 14.2 G/DL (11.5-16.0); LYMPHOCYTES # (AUTO) 4.1 X 10^3 (1.0-4.0); LYMPHOCYTES % (AUTO) 52 % (12-44); MEAN CORPUSCULAR HEMOGLOBIN 28 PG (25-34); MEAN CORPUSCULAR HGB CONC 33 G/DL (32-36); MEAN CORPUSCULAR VOLUME 85 FL (80-99); MEAN PLATELET VOLUME 11.5 FL (7.4-10.4); MONOCYTES # (AUTO) 0.6 X 10^3 (0.0-1.0); MONOCYTES % (AUTO) 8 % (0-12); NEUTROPHILS % (AUTO) 38 % (42-75); PLATELET COUNT 247 10^3/uL (130-400); WHITE BLOOD COUNT 7.9 10^3/uL (4.3-11.0)
[2020-05-26] MEDS ORDERED: LACTATED RINGERS 1,000 ML IV SCH (18:54)
[2020-05-26] MEDS ORDERED: RT-ALBUTEROL/IPRATROPIUM 3 ML (DUONEB) VIAL IH PRN (19:00)
[2020-05-26 19:03] LABS: ALBUMIN 4.4 GM/DL (3.2-4.5); CHLORIDE 104 MMOL/L (98-107); POTASSIUM 4.8 MMOL/L (3.6-5.0); SODIUM 139 MMOL/L (135-145)
[2020-05-26 19:05] LABS: CALCIUM 9.3 MG/DL (8.5-10.1)
[2020-05-26 19:06] LABS: GLUCOSE 91 MG/DL (70-105); TOTAL PROTEIN 7.5 GM/DL (6.4-8.2)
[2020-05-26 19:07] LABS: CARBON DIOXIDE 23 MMOL/L (21-32)
[2020-05-26 19:08] LABS: BILIRUBIN,TOTAL 0.4 MG/DL (0.1-1.0)
[2020-05-26 19:09] LABS: ALKALINE PHOSPHATASE 125 U/L (40-136)
[2020-05-26 19:10] LABS: CREATININE SERUM 0.93 MG/DL (0.60-1.30); GFR ESTIMATED > 60
[2020-05-26 19:11] LABS: BUN/CREATININE RATIO 14
[2020-05-26 19:13] LABS: ALANINE AMINOTRANSFERASE 46 U/L (0-55)
--- NOTE | 2020-05-26 19:21 | ED Respiratory ---
General Chief Complaint: Respiratory Problems Stated Complaint: COUGH/SOB Nursing Triage Note: Patient reports worsening SOA x 2 hours. Has had congestion for 2 weeks Source: patient Exam Limitations: no limitations History of Present Illness Date Seen by Provider: May 26, 2020 Time Seen by Provider: 18:45 Initial Comments Here with report of shortness of air, cough and congestion over the last 2 weeks. Shortness of air has been occurring over the last 2 hours. Denies fevers. Notes that her 8-month-old also has congestion. No fever and the child either. Patient does breast-feed. Denies nausea, vomiting or diarrhea. Has had a use an inhaler long ago in the past for bronchitis but does not use one regularly. Denies asthma specifically. Go to sleep. Timing/Duration: week, getting worse Severity: moderate Prior Episodes/Possible Cause: no prior episodes Modifying Factors: Worse With Activity, Worse With Coughing; Improves With Rest Associated Symptoms: No chest pain/soreness; cough; No fever/chills; nasal congestion, nasal drainage, shortness of breath, wheezing Allergies and Home Medications Allergies Coded Allergies: No Known Drug Allergies (Unverified , 12/18/18) Home Medications Acetaminophen 500 Mg Tablet, 1,000 MG PO Q8HR Prescribed by: [facility] on 09/05/19722 Ferrous Sulfate 325 Mg Tablet, 325 MG PO DAILY Prescribed by: [facility] on 09/05/19722 Ibuprofen 600 Mg Tablet, 600 MG PO Q6HR Prescribed by: [facility] on 09/05/19722 Oxycodone Hcl 5 Mg Tab, 5 MG PO Q4HR PRN for PAIN-SEVERE (8-10) Prescribed by: [facility] on 09/05/19722 Vit No.124/Iron/FA 1 Each Tablet, 1 EACH PO DAILY, (Reported) Patient Home Medication List Home Medication List Reviewed: Yes Review of Systems Review of Systems Constitutional: see HPI; No chills, No fever EENTM: see HPI Respiratory: see HPI Cardiovascular: No chest pain, No edema Gastrointestinal: No abdominal pain, No nausea, No vomiting Genitourinary: no symptoms reported Musculoskeletal: no symptoms reported Skin: no symptoms reported Psychiatric/Neurological: Denies Headache; Other (lightheaded) All Other Systems Reviewed Negative Unless Noted: Yes Past Evpaise-Dykzmt-Brqrfw Hx Past Med/Social Hx: Reviewed Nursing Past Med/Soc Hx Patient Social History Alcohol Use: Denies Use Recreational Drug Use: No Smoking Status: Never a Smoker 2nd Hand Smoke Exposure: No Recent Foreign Travel: No Contact w/Someone Who Travel: No Recent Infectious Disease Expo: No Recent Hopitalizations: No Immunizations Up To Date Date of Influenza Vaccine: Jul 04, 2019 Seasonal Allergies Seasonal Allergies: No Past Medical History Surgeries: Yes Tonsillectomy Respiratory: No Cardiac: No Neurological: Yes Genitourinary: No Gastrointestinal: No Musculoskeletal: No Endocrine: No HEENT: No Cancer: No Psychosocial: Yes Depression Integumentary: No Blood Disorders: No Adverse Reaction/Blood Tranf: No Family Medical History Reviewed Nursing Family Hx FH: arrhythmia (Father) FH: hyperthyroidism (Mother) Hypercholesterolemia (Mother, Father) Hypertension (Mother) No Pertinent Family Hx Physical Exam Vital Signs - First Documented 05/26/20 18:37 Temp 36.0 Pulse 95 Resp 18 B/P (MAP) 144/133 (137) Pulse Ox 96 Capillary Refill : Less Than 3 Seconds Height: 5'11.00" Weight: 270lbs. oz. 122.346523qj; 37.00 BMI Method:Stated General Appearance: WD/WN, no apparent distress HEENT: PERRL/EOMI, pharynx normal Neck: full range of motion, supple Respiratory: lungs clear, normal breath sounds Cardiovascular: no murmur, tachycardia Gastrointestinal: non tender, soft Extremities: non-tender, normal inspection Neurologic/Psychiatric: alert, oriented x 3 Skin: normal color, warm/dry Progress/Results/Core Measures Suspected Sepsis Recent Fever Within 48 Hours: No Infection Criteria Present: None New/Unexplained Altered Menta: No Sepsis Screen: No Definite Risk SIRS Temperature: Pulse: 95 Respiratory Rate: 18 Laboratory Tests 05/26/20 18:45: White Blood Count 7.9 Blood Pressure 144 /133 Mean: 137 Laboratory Tests 05/26/20 18:45: Creatinine 0.93, Platelet Count 247, Total Bilirubin 0.4 Results/Orders Lab Results Laboratory Tests Test 05/26/20 18:45 05/26/20 19:00 Range/Units White Blood Count 7.9 4.3-11.0 10^3/uL Red Blood Count 5.01 4.35-5.85 10^6/uL Hemoglobin 14.2 11.5-16.0 G/DL Hematocrit 43 35-52 % Mean Corpuscular Volume 85 80-99 FL Mean Corpuscular Hemoglobin 28 25-34 PG Mean Corpuscular Hemoglobin Concent 33 32-36 G/DL Red Cell Distribution Width 12.9 10.0-14.5 % Platelet Count 247 130-400 10^3/uL Mean Platelet Volume 11.5 H 7.4-10.4 FL Neutrophils (%) (Auto) 38 L 42-75 % Lymphocytes (%) (Auto) 52 H 12-44 % Monocytes (%) (Auto) 8 0-12 % Eosinophils (%) (Auto) 1 0-10 % Basophils (%) (Auto) 0 0-10 % Neutrophils # (Auto) 3.0 1.8-7.8 X 10^3 Lymphocytes # (Auto) 4.1 H 1.0-4.0 X 10^3 Monocytes # (Auto) 0.6 0.0-1.0 X 10^3 Eosinophils # (Auto) 0.1 0.0-0.3 10^3/uL Basophils # (Auto) 0.0 0.0-0.1 10^3/uL D-Dimer 0.73 H 0.00-0.49 UG/ML Sodium Level 139 135-145 MMOL/L Potassium Level 4.8 3.6-5.0 MMOL/L Chloride Level 104 98-107 MMOL/L Carbon Dioxide Level 23 21-32 MMOL/L Anion Gap 12 5-14 MMOL/L Blood Urea Nitrogen 13 7-18 MG/DL Creatinine 0.93 0.60-1.30 MG/DL Estimat Glomerular Filtration Rate > 60 BUN/Creatinine Ratio 14 Glucose Level 91 70-105 MG/DL Calcium Level 9.3 8.5-10.1 MG/DL Corrected Calcium 9.0 8.5-10.1 MG/DL Total Bilirubin 0.4 0.1-1.0 MG/DL Aspartate Amino Transf (AST/SGOT) 30 5-34 U/L Alanine Aminotransferase (ALT/SGPT) 46 0-55 U/L Alkaline Phosphatase 125 40-136 U/L C-Reactive Protein High Sensitivity 0.86 H 0.00-0.50 MG/DL Total Protein 7.5 6.4-8.2 GM/DL Albumin 4.4 3.2-4.5 GM/DL Procalcitonin 0.02 <0.10 NG/ML Serum Test, Qualitative NEGATIVE NEGATIVE My Orders Orders - REBECCA BERRY MD Lactated Ringers (Lr 1000 Ml Iv Solution (05/26/20 18:50) Albuterol Inhaler (Ventolin Hfa) (05/26/20 18:50) Hcg,Qualitative Serum (05/26/20 19:21) Medications Given in ED Current Medications Medications Dose Ordered Sig/Mitzi Route Start Time Stop Time Status Last Admin Dose Admin Albuterol Sulfate 18 gm STK-MED ONCE IH 05/26/20 18:50 05/26/20 18:56 DC 05/26/20 19:01 18 GM Lactated Ringer's 1,000 ml @ ud STK-MED ONCE IV 05/26/20 18:50 05/26/20 18:55 DC 05/26/20 18:57 999 MLS/HR Vital Signs/I&O 05/26/20 18:37 Temp 36.0 Pulse 95 Resp 18 B/P (MAP) 144/133 (137) Pulse Ox 96 Capillary Refill : Less Than 3 Seconds Blood Pressure Mean: 137 Progress Note : Progress Note Seen and evaluated. IV, labs, LR 1 L bolus, chest x-ray and albuterol inhaler 2 puffs ordered. Monitor patient. 1929: The inhaler did markedly improve her symptoms. Monitor patient. 2013: Prednisone 40 mg by mouth. X-ray negative. Labs reviewed and no significant abnormalities. She is overall still much better. Discharged home with return precautions. Patient verbalize understanding instructions and agreement with plan. COVID-19 testing pending. Diagnostic Imaging Diagonstic Imaging: Xray Plain Films/CT/US/NM/MRI: chest Comments [facility], [place] NAME: RINKU FLOREZ [facility] REC#: [id number] PT STATUS: REG ER : 1990 PHYSICIAN: CARLOS HYDE APRN ADMIT DATE: 05/26/20/ER Signed Date of Exam:05/26/20 CHEST 1 VIEW, AP/PA ONLY EXAMINATION: Chest radiograph, portable AP view. DATE: 05/26/2020 7:28 PM. INDICATION: 30-year-old female, cough. COMPARISON: None. FINDINGS: Heart size and mediastinal contours are grossly unremarkable. There is no identified pneumothorax. There is no large pleural effusion. There is no identified focal airspace consolidation. There are technical limitations of the study given patient body habitus and difficulties with exposure. IMPRESSION: No identified acute cardiopulmonary abnormality. Dictated by: Dictated on workstation # [id number] Dict: 05/26/201933 Trans: 05/26/202001 PJE [id number] Interpreted by: JESSICA REYNOSO MD Electronically signed by: JESSICA REYNOSO MD 05/26/202001 Departure Impression Primary Impression: Acute bronchitis Qualified Codes: J20.9 - Acute bronchitis, unspecified Additional Impression: Suspected COVID-19 virus infection Disposition: HOME, SELF-CARE (a more 100 mg) Condition: Improved Departure-Patient Inst. Decision time for Depature: 20:16 Referrals: EMY CHRISTY MD (PCP/Family) Primary Care Physician Patient Instructions: Acute Bronchitis, Adult (DC), Coronavirus Disease 2019 (COVID-19) (DC) Add. Discharge Instructions: All discharge instructions reviewed with patient and/or family. Voiced understanding. Drink plenty of fluids and get plenty of rest. You will need to remain on quarantine until test results are noted. If they are negative, you will need to be isolated for 3 days after symptoms resolve. If they are positive, the health department will call you and direct isolation timeframe. You may take ibuprofen 600 mg every 8 hours as needed for fever or pain. You may take Tylenol/acetaminophen 1000 mg every 8 hours as needed for fever. Take other medications as directed. You may use your inhaler 2 puffs every 4 hours as needed for wheezing. Return for worse pain, fever, vomiting, weakness, breathing problems or other concerns as needed. Scripts Prednisone (Prednisone) 20 Mg Tab 40 MG PO DAILY, #8 TAB 0 Refills Prov: REBECCA BERRY MD 05/26/20 REBECCA BERRY MD May 26, 2020 19:21
--- NOTE | 2020-05-26 19:44 | Diagnostic Imaging Report ---
EXAMINATION: Chest radiograph, portable AP view. DATE: 05/26/2020 7:28 PM. INDICATION: 30-year-old female, cough. COMPARISON: None. FINDINGS: Heart size and mediastinal contours are grossly unremarkable. There is no identified pneumothorax. There is no large pleural effusion. There is no identified focal airspace consolidation. There are technical limitations of the study given patient body habitus and difficulties with exposure. IMPRESSION: No identified acute cardiopulmonary abnormality. Dictated by: Dictated on workstation # [id number]
[2020-05-26] MEDS ORDERED: predniSONE 20 MG TAB PO ONE (20:15)
[2020-05-26] MEDS ORDERED: PRD20T PO (20:17)
[2020-05-26 20:19] VITALS: BP 130/84
[2020-05-26] MEDS ORDERED: RT-ALBUTEROL INHALER HFA (VENTOLIN HFA) 18 GM IH SCH (22:00)
== END 2020-05-26 20:23 | disposition home or self-care (01) ==
LOC: EDUNIT# 18:27 → ER 18:28
DX: J20.9 Acute bronchitis, unspecified (principal); Z20.828 Contact with and (suspected) exposure to other viral communicable diseases; Z82.49 Family history of ischemic heart disease and other diseases of the circulatory system
CPT/HCPCS: 71045; 80053; 84145; 84703; 85025; 85379; 86141; 99282; U0002; 36415; 87635

== ENCOUNTER → 2023-02-02 | Outpatient (CLI) | payer BC ==
[~2023-02-02] MED LIST changes: +PRD20T PO
--- NOTE | 2023-02-02 18:55 | Diagnostic Imaging Report ---
PROCEDURE: Pelvic comp/transvaginal sonogram. TECHNIQUE: Complete transabdominal and transvaginal pelvic ultrasound was performed. In addition, limited pelvic Doppler was performed. INDICATION: Ovarian cyst. The uterus is retroverted measuring 7.9 x 3.4 x 4.3 cm. Endometrium is 11 mm in thickness. Cystic changes with vascular thickened septa in the cervix are noted, in aggregate measuring 1.8 x 1.4 x 1.7 cm. No myometrial masses are seen. Right ovary measures 4.2 x 2.6 x 2.7 cm, and the left ovary measures 4.0 x 2.4 x 2.7 cm. Ovaries contain numerous follicles. Multiple follicles are somewhat peripheral in distribution, and polycystic ovarian syndrome cannot be entirely excluded. There is blood flow to the ovaries. No free fluid is detected. IMPRESSION: 1. Complex cystic mass-like area within the cervix, and direct visualization would be recommended if not already performed. 2. Peripheral based follicles within the ovaries, raising a question of polycystic ovarian syndrome. No other abnormality is seen. Dictated by: Dictated on workstation # [id number]
== END ==
LOC: RAD 13:27
PROVIDERS: ATTEND Nurse Practitioner Women's Health
DX: N88.8 Other specified noninflammatory disorders of cervix uteri (principal); N83.8 Other noninflammatory disorders of ovary, fallopian tube and broad ligament; N92.1 Excessive and frequent menstruation with irregular cycle
CPT/HCPCS: 76830; 76856